=== PATIENT | male | born 1970 | race African-American/Black ===

== ENCOUNTER 2020-09-03 08:14 | Emergency (ER) | payer SELFPAY ==
[2020-09-03 08:16] VITALS: BP 117/46; PULSE 82; RESP 16; TEMP 36.3; O2SAT 99; BMI 30.5
[2020-09-03 08:28] VITALS: BP 117/46; PULSE 82; RESP 16; TEMP 36.3; O2SAT 99
--- NOTE | 2020-09-03 08:48 | ED.VIS.GEN ---
History of Present Illness Chief Complaint: Male Pain/Injury Detail of Chief Complaint: STD Informant: Patient Onset: Weeks - 3 weeks Current Severity: Mild Maximum Severity: Mild Narrative: Patient presents with 3-week history of dysuria that started after having intercourse. Patient states he knows he has an STD and just needs treated. He denies discharge, lesions, or pain to the genitalia. Patient denies fever or chills. He is from [place] but is currently here in [place] for drug and alcohol rehab. Past Medical History - Allergies and Home Meds Allergies/Adverse Reactions: Allergies Sulfa (Sulfonamide Antibiotics) Allergy (Verified 09/03/20 08:16) PT UNSURE OF REACTION Primary Care Physician: [facility] Department,[facility] [[facility]] - Past Medical History: None Lives: Alone Smoking Status: Never smoker Review of Systems General: Denies: Chills, Fever Eyes: Denies: Visual changes - bilaterally ENT: Denies: Bilateral ear pain Cardiovascular: Denies: Chest pain Respiratory: Denies: Dyspnea Gastrointestinal: Denies: Abdominal pain, Nausea, Vomiting Genitourinary: Reports: Dysuria Musculoskeletal: Denies: Extremity Pain Skin: Denies: Rash Neurological: Denies: Headache Hematologic: Denies: Easy bruising, Easy bleeding Allergy: Denies: Uticaria Physical Exam Vital Signs/Narrative: Vital Signs Temp Pulse Resp BP Pulse Ox 09/03/20 08:28 97.4 F L 82 16 117/46 L 99 09/03/20 08:16 97.4 F L 82 16 117/46 L 99 Inital Vital Signs reviewed: Yes General: Well nourished, Well developed Head: Normocephalic ENT: Moist mucous membranes Neck: Supple Cardiovascular: Regular rate, Regular rhythm Respiratory: No distress, CTA bilaterally Abdomen: Soft, Nontender, Normal bowel sounds : - - Patient declines exam Extremities: Nontender Skin: Normal color Neurological: Alert, Oriented x3 Psychological: Normal affect Diagnostic/Tx/Re-eval - Medical Decision Making Patient's urine will be sent for gonorrhea chlamydia testing. I did discuss with him that this is not include HIV testing. He will be treated with Rocephin and Zithromax as he does have symptoms. If his tests are positive he will be notified so that he can notify any partners that will also need to be treated. ED Disposition - Plan for ED Patient: Disposition: Home or Assisted Living Diagnosis: Urethritis Instructions: ED STI Male Treated Referrals: Health Department,[facility] [[facility]] - Abimbola Case [Primary Care Provider] -
[2020-09-03] MEDS: Azithromycin 250 MG Tablet 1000 MG PO (09:40)
[2020-09-03] MEDS: Ceftriaxone 500 MG Vial 250 MG IM (09:43)
[2020-09-03 10:17] VITALS: PULSE 79; RESP 16; O2SAT 97
--- NOTE | 2020-09-03 10:17 | ED.RN ---
THIS NURSE REVIEWED D/C INSTRUCTIONS WITH PT. PT VERBALIZED UNDERSTANDING OF INSTRUCTIONS. PT DENIES FURTHER NEEDS OR QUESTIONS AT THIS TIME. PT AMBULATES FROM ROOM ON OWN WITHOUT ASSISTANCE FROM STAFF
[2020-09-03 12:35] LABS: Chlamydia Trachomatis by PCR Negative (Negative); Neisserai gonorrhoeae by PCR Negative (Negative); Probe Check PASS; Sample Adequacy Control PASS; Specimen Processing Control PASS
== END 2020-09-03 10:18 | disposition home or self-care (01) ==
LOC: ED 08:51
PROVIDERS: Emergency Provider Emergency Medicine
DX: N34.2 Other urethritis (principal); Z88.2 Allergy status to sulfonamides
CPT/HCPCS: 87491; 87591; 96372; 99283

== ENCOUNTER 2020-09-08 08:19 | Emergency (ER) | payer SELFPAY ==
[2020-09-08 08:20] VITALS: BP 124/97; PULSE 90; RESP 16; TEMP 36.4; O2SAT 99; BMI 30.5
--- NOTE | 2020-09-08 08:36 | ED.VIS.GEN ---
History of Present Illness Chief Complaint: Complaint Informant: Patient Narrative: Patient states for the past several weeks he has had dysuria. He reports a burning sensation along the distal shaft of the penis to the meatus. He has been drinking lots of fluids to see if that would help. He states that he was seen in the emergency room approximately 5 days ago. At that time he deferred a exam. Patient received a shot of Rocephin and azithromycin as he believed he had an STD. He reports that he has had an STD in the past and this felt similar. His gonorrhea and Chlamydia test came back negative. He called for primary care and could not be seen until 24 September. He states that after the shot he did feel symptomatically better but not resolved. He also notes discomfort in the bilateral low back. He reports that he is supposed to be on Flomax but is not currently taking it as he does not have the medication. He describes a normal stream. He denies any fevers nausea or vomiting. He denies any rectal pain. States that he does feel a bit swollen in his prostate region when he sits. He denies any abdominal pain. Other than BPH he denies any other diagnoses. Patient does not know PSA levels in the past. No history of diabetes. Past Medical History - Allergies and Home Meds Allergies/Adverse Reactions: Allergies Sulfa (Sulfonamide Antibiotics) Allergy (Verified 09/08/20 08:22) PT UNSURE OF REACTION Primary Care Physician: Abimbola Case [NON-STAFF] - As soon as possible Past Medical History: - - BPH Surgical History: noncontributory Lives: - - Currently residing in a sober house Smoking Status: Never smoker Drugs: - - History of/none current Review of Systems General: Denies: Chills, Fever, Sweats Eyes: Denies: Visual changes - bilaterally, Diplopia ENT: Denies: Rhinorrhea, Sore throat Cardiovascular: Denies: Chest pain, Palpitations Respiratory: Denies: Dyspnea, Cough, Dyspnea on exertion Gastrointestinal: Denies: Abdominal pain, Nausea, Vomiting, Diarrhea, Melena, Hematochezia Genitourinary: Reports: Dysuria. Denies: Hematuria, Frequency Musculoskeletal: Denies: Back pain, Extremity Pain Skin: Denies: Rash, Wounds Neurological: Denies: Headache, Weakness, Numbness Physical Exam Vital Signs/Narrative: Vital Signs Temp Pulse Resp BP Pulse Ox 09/08/20 08:20 97.6 F L 90 16 124/97 H 99 Inital Vital Signs reviewed: Yes General: Well nourished, Well developed, No Acute Distress Head: Normocephalic, Atraumatic Eyes: Perrl, EOMI ENT: Moist mucous membranes, No rhinorrhea Neck: Supple, Nontender Cardiovascular: Regular rate, Regular rhythm, No murmurs Respiratory: No distress, CTA bilaterally, Chest nontender Abdomen: Soft, Nontender, Nondistended, Normal bowel sounds Rectal: Deferred - per pt : - - Circumcised male. Testes tickles appear normal. There is no meatal discharge. No lesions or inflammation noted. Back: Nontender, Normal Inspection Extremities: Nontender, No edema Skin: Normal color, No rash Neurological: Alert, Oriented x3, Cranial nerves II-XII grossly intact, Normal Strength, Normal Sensation Psychological: Normal affect, Normal Mood Diagnostic/Tx/Re-eval Laboratory Last Values Urine Color Yellow (Yellow) 09/08/20 08:30 Urine Clarity Clear (Clear) 09/08/20 08:30 Urine pH 6.0 (5.0 - 8.0) 09/08/20 08:30 Ur Specific [place] 1.005 (1.002-1.030) 09/08/20 08:30 Urine Protein Negative mg/dl (Negative) 09/08/20 08:30 Urine Glucose (UA) Normal mg/dl (Normal) 09/08/20 08:30 Urine Ketones Negative mg/dl (Negative) 09/08/20 08:30 Urine Occult Blood Negative /ul (Negative) 09/08/20 08:30 Urine Nitrite Negative (Negative) 09/08/20 08:30 Urine Bilirubin Negative mg/dL (Negative) 09/08/20 08:30 Urine Urobilinogen Normal mg/dl (Normal) 09/08/20 08:30 Ur Leukocyte Esterase Negative /ul (Negative) 09/08/20 08:30 Urine RBC 0 SEEN /hpf (0-5) 09/08/20 08:30 Urine WBC 0 SEEN /hpf (0-5) 09/08/20 08:30 Ur Squamous Epith Cells 0 SEEN /hpf (0-5) 09/08/20 08:30 Urine Bacteria 0 SEEN /hpf (None Seen) 09/08/20 08:30 Urine Mucus 0 SEEN /hpf (<or=2+) 09/08/20 08:30 - Medical Decision Making Urinalysis was obtained. This was negative. Will be sent for culture. We talked about further advanced work-up including CAT scan and shared decision making we will defer. The patient states he has a diagnosis of BPH and needs Flomax. Prescription will be given. I will write him to have Cipro for possible mild prostatitis. He is to keep his appointment at the start of in clinic. Return if worsening or concerns. ED Disposition - Plan for ED Patient: Disposition: Home or Assisted Living Diagnosis: BPH (benign prostatic hyperplasia), Dysuria Instructions: ED Prostatitis, ED Dysuria Uncertain Cause Prescriptions: Ciprofloxacin [Cipro] 500 mg PO BID #20 tab Prescription Printed Tamsulosin HCl [Flomax] 0.4 mg PO DAILY #30 cap Prescription Printed Referrals: Abimbola Case [NON-STAFF] - As soon as possible
[2020-09-08 08:39] VITALS: BP 124/97; PULSE 90; RESP 16; TEMP 36.4; O2SAT 99
[2020-09-08 08:44] LABS: Bacteria 0 SEEN /hpf (None Seen); Mucous, Urine 0 SEEN /hpf (<or=2+); Red Blood Cells-Urine 0 SEEN /hpf (0-5); Squamous Epithelial Cells - UA 0 SEEN /hpf (0-5); White Blood Cells 0 SEEN /hpf (0-5)
[2020-09-08 08:46] LABS: Color, Urine Yellow (Yellow); Glucose, Dipstick Normal (Normal); Ketone-Dipstick Negative (Negative); Leukocyte Esterase-Dipstick Negative /ul (Negative); Nitrite-Dipstick Negative (Negative); Occult Blood-Urine Negative /ul (Negative); Protein-Dipstick Negative (Negative); Specific Gravity, Urine 1.005 (1.002-1.030); Urine Bilirubin Dipstick Negative (Negative); Urine Clarity Clear (Clear); Urine Urobilinogen Normal (Normal)
[2020-09-08 09:12] VITALS: BP 124/97; PULSE 90; RESP 18
== END 2020-09-08 09:14 | disposition home or self-care (01) ==
PROVIDERS: Emergency Provider Emergency Medicine
DX: N40.1 Benign prostatic hyperplasia with lower urinary tract symptoms (principal); R30.0 Dysuria; Z88.2 Allergy status to sulfonamides
CPT/HCPCS: 81001; 99282

== ENCOUNTER → 2020-09-24 15:01 | Outpatient (CLI) | payer SELFPAY ==
[2020-09-08 08:20] VITALS: BMI 30.5
[2020-09-24 15:44] LABS: Absolute Lymphocyte Count 2.71 X10^3/uL (0.83-4.51); Absolute Neutrophil Count 2.7 X10^3/uL (2.0-7.7); Basophil# 0.03 X10^3/uL; Basophil% 0.5 % (0-1); Eosinophil# 0.13 X10^3/uL; Eosinophils% 2.1 % (0-5); Hematocrit 40.5 % (40-54); Hemoglobin 13.2 g/dL (13.0-16.5); Lymphocyte # 2.71 X10^3/ul (4.0); Lymphocyte % 44.6 % (19-41); Mean Corp Hgb Conc 32.6 g/dL (32-36); Mean Corpuscular Hgb 27.4 pg (27.0-32.0); Mean Corpuscular Volume 84.2 fL (80-94); Mean Platelet Vol. 10.9 fl (6.2-12.0); Monocyte# 0.55 X10^3/uL; NRBC Flagged by Analyzer 0 % (0-5); Neutrophil # 2.65 X10^3/uL (2.7-7.7); Neutrophil % 43.6 % (47-70); Platelet Count 191 K/mm3 (150-450); RBC Distribution Width CV 14.2 % (11.6-14.6); RBC Distribution Width SD 43.5 fl (35.1-43.9); Red Blood Count 4.81 M/mm3 (4.6-6.2); White Blood Count 6.1 K/mm3 (4.4-11.0)
[2020-09-24 16:39] LABS: HIV - WCH Non-Reactive (Nonreactive)
[2020-09-25 03:33] LABS: Rapid Plasmin Reagin (RPR) NONREACTIVE (NONREACTIVE)
== END ==
LOC: LAB 15:03
DX: Z87.438 Personal history of other diseases of male genital organs (principal)
CPT/HCPCS: 36415; 85025; 86592; 86703

== ENCOUNTER → 2020-10-05 08:57 | Outpatient (CLI) | payer SELFPAY ==
[2020-09-08 08:20] VITALS: BMI 30.5
== END ==
LOC: LABSPEC 08:59
PROVIDERS: PCP Internal Medicine Infectious Disease; Referring Provider Internal Medicine Infectious Disease; Visit Provider Internal Medicine Infectious Disease
DX: N41.1 Chronic prostatitis (principal); N34.2 Other urethritis
CPT/HCPCS: 87070; 87075; 87205

== ENCOUNTER → 2020-10-12 08:04 | Outpatient (CLI) | payer SELFPAY ==
--- NOTE | 2020-10-12 08:20 | US_ITS ---
PROCEDURES: TRANSRECTAL ULTRASOUND GUIDED - PROSTATE REASON FOR EXAM: Male, 50 years old. CHRONIC PROSTATITIS TECHNIQUE: Ultrasound evaluation of the prostate was performed with real-time and static enriquez-scale imaging. BIOPSY: A needle core biopsy was perform. A consent form was signed, PT-PTT levels checked and a time-out was called. The patient is currently off any anticoagulant therapy. Cleansing enema: Yes COMPARISON: None. FINDINGS: Prostate Volume: 19.8 cm3. 7 mm x 5 mm central prostatic calcification. The prostate glandular tissue appears normal without evidence of nodules or lesions. The prostate glandular tissue appears normal without evidence of nodules or lesions. The prostate glandular tissue appears normal without evidence of nodules or lesions. The seminal vesicles appear normal without evidence of nodules or lesions. US/Prostate IMPRESSION: Tiny central prostatic calcification. Electronically Signed: Noam Rodriguez, at 14:54 EST , Service support ,
== END ==
DX: N41.1 Chronic prostatitis (principal)
CPT/HCPCS: 76872

== ENCOUNTER 2021-02-18 21:17 | Emergency (ER) | payer SELFPAY ==
[2021-02-18 21:18] VITALS: BP 149/100; PULSE 89; RESP 18; TEMP 36.4; O2SAT 97; BMI 33.0
[2021-02-18 21:34] LABS: Bacteria 0 SEEN /hpf (None Seen); Mucous, Urine 0 SEEN /hpf (<or=2+); Red Blood Cells-Urine 0 SEEN /hpf (0-5); Squamous Epithelial Cells - UA 0 SEEN /hpf (0-5); White Blood Cells 0 SEEN /hpf (0-5)
[2021-02-18 21:37] LABS: Color, Urine Yellow (Yellow); Glucose, Dipstick Normal (Normal); Ketone-Dipstick Negative (Negative); Leukocyte Esterase-Dipstick Negative /ul (Negative); Nitrite-Dipstick Negative (Negative); Occult Blood-Urine Negative /ul (Negative); Protein-Dipstick Negative (Negative); Specific Gravity, Urine 1.005 (1.002-1.030); Urine Bilirubin Dipstick Negative (Negative); Urine Clarity Clear (Clear); Urine Urobilinogen Normal (Normal)
--- NOTE | 2021-02-18 22:13 | EX.ED.GUMALE ---
HPI History of Present Illness Chief Complaint: Male Pain/Injury Informant: patient Appearance Lesion(s): No Genital Edema: No Related History Sexually: Active Unprotected Sex: Yes STD: Yes Narrative Narrative: Patient is a 50-year-old male medical history significant for prostatitis presents to the emergency department with dysuria and concern for sexually transmitted disease. Patient states that he had unprotected sex about a month ago. He states since then, when he has ejaculation, he has significant pain. He also has had some mild discharge. He denies any fevers or chills. He denies any pain in his rectum or prostate pain. He states this feels different to when he had prostatitis before in the past. He is otherwise been in his normal state of health. [facility] Medical History Bipolar disorder Enlarged prostate Home Medications quetiapine 300 mg PO QHS 09/03/20 [History Last Taken Unknown] acyclovir 400 mg PO BID 02/18/21 [History Last Taken Unknown] tamsulosin 0.4 mg PO BID 02/18/21 [History Last Taken Unknown] Allergy/AdvReac Type Severity Reaction Status Date / Time Sulfa (Sulfonamide Allergy PT UNSURE Verified 02/18/21 22:04 Antibiotics) OF REACTION Social History Smoking Status: Never smoker ROS ROS ED Constitutional Constitutional ED: Denies chills or fever(s) Eyes Eyes: Denies blurry vision or change in vision ENT ENT ED: Denies ear pain or sore throat Cardiovascular Cardiovascular: Denies chest pain or palpitations Respiratory/Chest Respiratory/Chest: Denies cough, dyspnea or dyspnea on exertion Gastrointestinal Gastrointestinal: Denies abdominal pain, nausea or vomiting Genitourinary Genitourinary ED: Reports painful ejaculations; Denies dysuria or urinary frequency Musculoskeletal Musculoskeletal: Denies arthralgias or myalgias Integumentary Denies rash Neurologic Neurologic: Denies headache(s) or paresthesias Psychiatric Psychiatric: Denies anxiety or depression Endocrine Endocrinology: Denies polydipsia or polyuria Allergic/Immunologic Allergic/Immunologic ED: Denies urticaria EXAM Physical Exam Const Vital Signs: 02/18/21 21:18 Temperature 97.6 F L Temperature Source Temporal Pulse Rate 89 Respiratory Rate 18 Blood Pressure 149/100 H Blood Pressure Mean 116 Pulse Ox 97 Oxygen Delivery Method Room Air Positive well nourished and well developed General Appearance ED: well developed HEENT Reports normocephalic, head/scalp atraumatic and moist mucous membranes Eyes PERRL and EOMs intact bilaterally Neck no lymphadenopathy and supple General: Negative for tenderness Chest Wall inspection of chest normal Resp normal respiratory effort and clear to auscultation bilaterally Cardio regular rate, regular rhythm and no murmurs GI normal to inspection, nondistended, normoactive bowel sounds Palpation: Negative for tender, guarding or rebound tenderness present no CVA tenderness, external exam normal, testes normal, scrotum normal and no scrotal swelling Back/Spine no CVA tenderness Cervical Spine: Negative for cervical spine tenderness Thoracic Spine / Upper Back: Negative for thoracic spinal tenderness Extremity normal to inspection General Extremety ED: Negative for tenderness Neuro oriented x3 and CN's II-XII intact bilaterally Neuro Narrative: No focal deficits appreciated. Sensorium / Orientation: alert Psych mental status grossly normal Skin no rashes or lesions noted, no wounds and skin turgor normal MDM MDM MDM Narrative Medical decision making narrative: Patient presents with concern for sexually transmitted disease. Has had painful ejaculation. Testicles are normal. There is normal cremasteric. He had no prostate pain. Given his exposure, he will be treated. GC and Chlamydia were ordered and are pending. He was counseled to have his partners treated. The patient will be discharged home. Impression 1. Urethritis Lab Data Attestation: I reviewed the patient's lab results. Labs: Laboratory Results - last 24 hr 02/18/21 21:28 Urine Color Yellow Urine Clarity Clear Urine pH 7.0 Ur Specific [place] 1.005 Urine Protein Negative Urine Glucose (UA) Normal Urine Ketones Negative Urine Occult Blood Negative Urine Nitrite Negative Urine Bilirubin Negative Urine Urobilinogen Normal Ur Leukocyte Esterase Negative Urine RBC 0 SEEN Urine WBC 0 SEEN Ur Squamous Epith Cells 0 SEEN Urine Bacteria 0 SEEN Urine Mucus 0 SEEN Discharge Plan Triage Chief Complaint: Male Pain/Injury Other Complaint: Back ED Provider: Javier Jones Dx/Rx/DC Orders Instructions: ED Testing for Suspected STI Prescriptions: No Action quetiapine 300 MG tablet 300 mg PO QHS RF: 0 acyclovir 400 mg tablet 400 mg PO BID RF: 0 tamsulosin 0.4 MG capsule 0.4 mg PO BID RF: 0 Primary Care Provider: [facility] Abimbola Chandler Referrals: [facility],Abimbola Case [Primary Care Provider] -
[2021-02-18] MEDS: Azithromycin 250 MG Tablet 1000 MG PO (22:17)
[2021-02-18] MEDS: Ceftriaxone 500 MG Vial IM (22:17)
[2021-02-19 00:14] LABS: Chlamydia Trachomatis by PCR Negative (Negative); Neisserai gonorrhoeae by PCR Negative (Negative); Probe Check PASS; Sample Adequacy Control PASS; Specimen Processing Control PASS
== END 2021-02-18 22:45 | disposition home or self-care (01) ==
LOC: ED 22:16
PROVIDERS: Emergency Provider Emergency Medicine; PCP Internal Medicine Infectious Disease
DX: N34.2 Other urethritis (principal); N40.0 Benign prostatic hyperplasia without lower urinary tract symptoms; F31.9 Bipolar disorder, unspecified
CPT/HCPCS: 81001; 87491; 87591; 99283

== ENCOUNTER → 2021-02-24 16:15 | Outpatient (CLI) | payer SELFPAY ==
[2021-02-18 21:18] VITALS: BMI 33.0
[2021-02-24 16:46] LABS: Absolute Neutrophil Count 1.9 X10^3/uL (2.0-7.7); Basophil# 0.04 X10^3/uL; Basophil% 0.7 % (0-1); Eosinophil# 0.17 X10^3/uL; Eosinophils% 2.9 % (0-5); Hematocrit 41.2 % (40-54); Hemoglobin 13.6 g/dL (13.0-16.5); Lymphocyte % 53.6 % (19-41); Mean Corpuscular Hgb 27.5 pg (27.0-32.0); Mean Corpuscular Volume 83.4 fL (80-94); Mean Platelet Vol. 11.6 fl (6.2-12.0); Monocyte# 0.51 X10^3/uL; Monocyte% 8.8 % (0-10); NRBC Flagged by Analyzer 0 % (0-5); Neutrophil # 1.94 X10^3/uL (2.7-7.7); Neutrophil % 33.7 % (47-70); Platelet Count 222 K/mm3 (150-450); RBC Distribution Width CV 13.3 % (11.6-14.6); RBC Distribution Width SD 40.7 fl (35.1-43.9); Red Blood Count 4.94 M/mm3 (4.6-6.2); White Blood Count 5.8 K/mm3 (4.4-11.0)
[2021-02-24 17:14] LABS: AST(SGOT) 27 U/L (15-37); Alanine Aminotransfer ALT/SGPT 45 U/L (16-61); Albumin, Serum 4.3 g/dL (3.2-5.0); Alkaline Phosphatase 70 U/L (45-117); Anion Gap 3 (5-15); BUN 14 mg/dL (7-18); BUN/Creat Ratio 11.1 RATIO (10-20); Calcium,Total 9.1 mg/dL (8.5-10.1); Chloride 104 mmol/L (98-107); Creatinine, Serum 1.26 mg/dL (0.70-1.30); EST Glomerular Filtration Rate 64 mL/min (>60); Est Glom Filt Rate - Afr Amer 78 mL/min (>60); Globulin 4.5 g/dL (2.2-4.2); Glucose 102 mg/dL (74-106); PSA,Total - Annual Screen 0.43 ng/mL (0.00-4.00); Potassium 4.1 mmol/L (3.5-5.1); Protein, Total 8.8 g/dL (6.4-8.2); Sodium Level 138 mmol/L (136-145)
[2021-02-25 08:12] LABS: HIV - WCH Non-Reactive (Nonreactive); Syphilis Antibodies Non-reactive
[2021-02-26 14:11] LABS: HEPATITIS B SURFACE AG Negative (Negative); Hepatitis B Core AB IgM Negative (Negative); Hepatitis B Core Ab Total Negative (Negative); Hepatitis Be Ab Negative (Negative); Hepatitis Be Ag Negative (Negative); Hepatitis C Ab <0.1 s/co ratio (0.0-0.9)
[2021-02-26 20:47] LABS: Hep B Surface Antibodies Non Reactive (.)
== END ==
LOC: LAB 16:16
PROVIDERS: PCP Internal Medicine Infectious Disease; Referring Provider Nurse Practitioner Adult Health; Visit Provider Nurse Practitioner Adult Health
DX: R35.0 Frequency of micturition (principal)
CPT/HCPCS: 36415; 80053; 82274; 84153; 85025; 86703; 86704; 86705; 86706; 86707; 86780; 86803; 87340; 87350; G0103

== ENCOUNTER 2021-05-27 21:20 | Emergency (ER) | payer MEDICAID, SELFPAY ==
[2021-05-27 21:21] VITALS: BP 128/77; PULSE 92; RESP 16; TEMP 36.5; O2SAT 96; BMI 33.0
--- NOTE | 2021-05-27 21:56 | EDS_ITS ---
HPI History of Present Illness Chief Complaint: Flank Pain Informant: patient Narrative Narrative: 51-year-old male presents the emergency room with 3 weeks of urinary frequency and dysuria. was given an antibiotic and Flomax. Tells me that he went to Abimbola gayle in clinic for diabetes. He notes some constipation for which she has been taking Metamucil. He states that he took all the antibiotic but it did not help him. He states that a week ago he was started on Metformin He notes mid back discomfort. He denies any fevers nausea or vomiting. He states that he went and saw a urologist at [facility] who recommended that he go to physical therapy but he cannot tell me what his diagnosis was. He denies any lotions or lube. He states he has had this before and when he was given Rocephin and azithromycin it helped him. Denies any penile drainage or sores. Patient states his stream is strong. He does not feel that he fully empties his bladder. [facility] Medical History (Updated 05/28/21 @ 00:[address] Michele Serrato DO) Bipolar disorder Diabetes Enlarged prostate Home Medications quetiapine 300 mg PO QHS 09/03/20 [History Last Taken Unknown] acyclovir 400 mg PO BID 02/18/21 [History Last Taken Unknown] metformin 500 mg PO DAILY 05/27/21 [History Last Taken Unknown] Allergy/AdvReac Type Severity Reaction Status Date / Time Sulfa (Sulfonamide Allergy PT UNSURE Verified 05/27/21 21:21 Antibiotics) OF REACTION Social History (Updated 05/27/21 @ 21:[address] Michele Serrato DO) Smoking Status: Never smoker substance use type: does not use ROS ROS ED Constitutional Constitutional ED: Denies chills or weight loss Eyes Eyes: Denies change in vision or diplopia ENT ENT ED: Denies ear pain, rhinorrhea or sore throat Cardiovascular Cardiovascular: Denies chest pain, orthopnea, palpitations or racing heartbeat Respiratory/Chest Respiratory/Chest: Denies cough, dyspnea or orthopnea Gastrointestinal Gastrointestinal: Reports constipation; Denies abdominal pain, diarrhea, nausea or vomiting Genitourinary Genitourinary ED: Reports dysuria and urinary frequency; Denies hematuria Musculoskeletal Musculoskeletal: Reports back pain; Denies arthralgias or myalgias Integumentary Denies abscess or rash Neurologic Neurologic: Denies headache(s) or weakness Psychiatric Psychiatric: Denies anxiety, depression, suicidal ideation or suicidal thoughts Endocrine Endocrinology: Denies polydipsia, polyphagia or polyuria Allergic/Immunologic Allergic/Immunologic ED: Denies mouth swelling, tongue swelling or urticaria EXAM Physical Exam Const Vital Signs: 05/27/21 21:21 05/27/21 22:00 05/28/21 00:10 Temperature 97.7 F L Temperature Source Temporal Pulse Rate 92 Respiratory Rate 16 18 18 Blood Pressure 128/77 H Blood Pressure Mean 94 Pulse Ox 96 Oxygen Delivery Method Room Air Positive well nourished and well developed General Appearance ED: well developed HEENT Reports normocephalic, head/scalp atraumatic and moist mucous membranes Eyes PERRL and EOMs intact bilaterally Neck no lymphadenopathy, supple and no JVD Resp normal respiratory effort and clear to auscultation bilaterally Cardio regular rate, regular rhythm and no murmurs GI normal to inspection, nondistended, normoactive bowel sounds and non-tender Palpation: soft Back/Spine no CVA tenderness and normal ROM Extremity normal to inspection General Extremety ED: Negative for edema General Extremity: Negative for edema Neuro oriented x3 and CN's II-XII intact bilaterally Sensorium / Orientation: alert Motor Exam: strength 5/5 throughout Psych mental status grossly normal Mood & Affect: Negative for depressed or tearful Skin no rashes or lesions noted and no wounds MDM MDM MDM Narrative Medical decision making narrative: Urine specimen was normal. Creatinine 1.36. Glucose is 95. Suggestive that it is not hyperglycemia this causing his urinary frequency. White count 4.7. CT then pelvis was negative. Patient requests Rocephin and azithromycin. I think this is reasonable. However I am concerned about a urethral stricture. I recommend he follow-up with urology as soon as possible Lab Data Attestation: I reviewed the patient's lab results. Labs: Laboratory Results - last 24 hr 05/27/21 05/27/21 05/27/21 21:50 21:55 21:55 WBC 4.7 RBC 4.80 Hgb 13.6 Hct 40.3 MCV 84.0 MCH 28.3 MCHC 33.7 RDW Std Deviation 38.9 RDW Coeff of [place] 12.8 Plt Count 191 MPV 11.4 Immature Gran % (Auto) 0.200 Neut % (Auto) 38.2 L Lymph % (Auto) 50.9 H [place] % (Auto) 8.4 Eos % (Auto) 1.7 Baso % (Auto) 0.6 Absolute Neuts (auto) 1.8 L Absolute Lymphs (auto) 2.37 Nucleated RBC % 0 Sodium 138 Potassium 4.1 Chloride 101 Carbon Dioxide 31.0 Anion Gap 6 BUN 22 H Creatinine 1.36 H Estim Creat Clear Calc 67.10 Est GFR (MDRD) Af Amer 71 Est GFR (MDRD) Non-Af 59 L BUN/Creatinine Ratio 16.2 Glucose 95 Calcium 9.2 Total Bilirubin 0.90 AST 38 H ALT 53 Alkaline Phosphatase 70 Total Protein 8.8 H Albumin 4.3 Globulin 4.5 H Albumin/Globulin Ratio 1.0 Urine Color Yellow Urine Clarity Clear Urine pH 6.0 Ur Specific [place] 1.015 Urine Protein Negative Urine Glucose (UA) Normal Urine Ketones Negative Urine Occult Blood Negative Urine Nitrite Negative Urine Bilirubin Negative Urine Urobilinogen Normal Ur Leukocyte Esterase Negative Urine RBC 0 SEEN Urine WBC 0 SEEN Ur Squamous Epith Cells 0 SEEN Urine Bacteria 0 SEEN Urine Mucus 0 SEEN Radiography Diagnostic Testing: Radiology Impression Abdomen/Pelvis CT 05/27/21 22:51 IMPRESSION: Normal unenhanced CT of the abdomen and pelvis. Electronically Signed: Maxi MartinesDO ruth at 23:54 EDT Tel , Service support , Discharge Plan Triage Chief Complaint: Flank Pain ED Provider: Michele Serrato Dx/Rx/DC Orders Clinical Impression: Dysuria Instructions: ED Dysuria, Uncertain Cause (Adult) Prescriptions: No Action quetiapine 300 MG tablet 300 mg PO QHS RF: 0 acyclovir 400 mg tablet 400 mg PO BID RF: 0 metformin 500 mg Tablet 500 mg PO DAILY RF: 0 Primary Care Provider: Melba Dover Referrals: Félix Correia MD [STAFF PHYSICIAN] - As soon as possible (For urology) Melba Dover NP-C [Primary Care Provider] - As Needed Activity Restrictions/Additional Instructions: I would recommend following up with urology as soon as possible. If you do not have contact information there is a referral above Disposition Disposition: Home, Self Care
[2021-05-27 22:00] VITALS: RESP 18
[2021-05-27 22:08] LABS: Bacteria 0 SEEN /hpf (None Seen); Mucous, Urine 0 SEEN /hpf (<or=2+); Red Blood Cells-Urine 0 SEEN /hpf (0-5); Squamous Epithelial Cells - UA 0 SEEN /hpf (0-5); White Blood Cells 0 SEEN /hpf (0-5)
[2021-05-27 22:11] LABS: Color, Urine Yellow (Yellow); Glucose, Dipstick Normal (Normal); Ketone-Dipstick Negative (Negative); Leukocyte Esterase-Dipstick Negative /ul (Negative); Nitrite-Dipstick Negative (Negative); Occult Blood-Urine Negative /ul (Negative); Protein-Dipstick Negative (Negative); Specific Gravity, Urine 1.015 (1.002-1.030); Urine Bilirubin Dipstick Negative (Negative); Urine Clarity Clear (Clear); Urine Urobilinogen Normal (Normal)
[2021-05-27 22:16] LABS: Absolute Lymphocyte Count 2.37 X10^3/uL (0.83-4.51); Absolute Neutrophil Count 1.8 X10^3/uL (2.0-7.7); Basophil# 0.03 X10^3/uL; Basophil% 0.6 % (0-1); Eosinophil# 0.08 X10^3/uL; Eosinophils% 1.7 % (0-5); Hematocrit 40.3 % (40-54); Hemoglobin 13.6 g/dL (13.0-16.5); Lymphocyte # 2.37 X10^3/ul (0.83-4.51); Lymphocyte % 50.9 % (19-41); Mean Corp Hgb Conc 33.7 g/dL (32-36); Mean Corpuscular Hgb 28.3 pg (27.0-32.0); Mean Platelet Vol. 11.4 fl (6.2-12.0); Monocyte# 0.39 X10^3/uL; Monocyte% 8.4 % (0-10); NRBC Flagged by Analyzer 0 % (0-5); Neutrophil # 1.78 X10^3/uL (2.7-7.7); Neutrophil % 38.2 % (47-70); Platelet Count 191 K/mm3 (150-450); RBC Distribution Width CV 12.8 % (11.6-14.6); RBC Distribution Width SD 38.9 fl (35.1-43.9); White Blood Count 4.7 K/mm3 (4.4-11.0)
[2021-05-27 22:28] LABS: AST(SGOT) 38 U/L (15-37); Alanine Aminotransfer ALT/SGPT 53 U/L (16-61); Albumin, Serum 4.3 g/dL (3.2-5.0); Alkaline Phosphatase 70 U/L (45-117); Anion Gap 6 (5-15); BUN 22 mg/dL (7-18); BUN/Creat Ratio 16.2 RATIO (10-20); Calcium,Total 9.2 mg/dL (8.5-10.1); Chloride 101 mmol/L (98-107); Creatinine, Serum 1.36 mg/dL (0.70-1.30); EST Glomerular Filtration Rate 59 mL/min (>60); Est Glom Filt Rate - Afr Amer 71 mL/min (>60); Globulin 4.5 g/dL (2.2-4.2); Glucose 95 mg/dL (74-106); Potassium 4.1 mmol/L (3.5-5.1); Protein, Total 8.8 g/dL (6.4-8.2); Sodium Level 138 mmol/L (136-145)
--- NOTE | 2021-05-27 22:51 | CT_ITS ---
STUDY: CT ABDOMEN AND PELVIS WITHOUT CONTRAST REASON FOR EXAM: Male, 51 years old. kidney stone RADIATION DOSAGE (If Supplied By Facility): CTDIvol = ( 10.52 ) mGy, DLP = ( 795.36 ) mGycm TECHNIQUE: Transaxial images were obtained from the dome of the diaphragm to the symphysis pubis without oral contrast, and without intravenous contrast. Sagittal and coronal images were reconstructed. Individualized dose optimization techniques were used for this CT. COMPARISON: None. FINDINGS: The visualized lung bases are unremarkable. The visualized portions of the heart are within normal limits. Normal liver. Normal gallbladder and extrahepatic biliary system. Normal spleen. Normal pancreas. Normal bilateral adrenal glands. Normal right kidney. Normal left kidney. Normal visualized stomach. Normal small intestine. Normal colon. The appendix is visualized and appears normal. Normal abdominal aorta. Normal inferior vena cava. Normal retroperitoneum. Normal urinary bladder. Normal visualized prostate gland. Normal abdominal wall. Normal osseous structures. CT/Abdomen/Pelvis without Cont IMPRESSION: Normal unenhanced CT of the abdomen and pelvis. Electronically Signed: Maxi Kumar DO at 23:54 EDT Tel , Service support ,
[2021-05-28 00:10] VITALS: RESP 18
[2021-05-28] MEDS: Azithromycin 250 MG Tablet 1000 MG PO (00:40)
[2021-05-28] MEDS: Ceftriaxone 500 MG Vial IM (00:54)
[2021-05-28 00:59] VITALS: BP 122/60; PULSE 85; RESP 18; O2SAT 97
== END 2021-05-28 01:07 | disposition home or self-care (01) ==
PROVIDERS: Emergency Provider Emergency Medicine; PCP Nurse Practitioner Adult Health
DX: R30.0 Dysuria (principal); R10.9 Unspecified abdominal pain; K59.00 Constipation, unspecified; E11.9 Type 2 diabetes mellitus without complications; F31.9 Bipolar disorder, unspecified; N40.0 Benign prostatic hyperplasia without lower urinary tract symptoms; Z79.84 Long term (current) use of oral hypoglycemic drugs; Z87.442 Personal history of urinary calculi
CPT/HCPCS: 74176; 80053; 81001; 85025; 96372; 99283